=== PATIENT | male | born 1965 | race Caucasian/White ===

== ENCOUNTER 2023-09-07 20:59 | Emergency (ER) | payer BC, OTHER ==
[~2023-09-07] VITALS: Ht 172.7 cm; Wt 74.8 kg
[2023-09-07 23:20] VITALS: BP 134/70; TEMP 98.3; O2SAT 99
== END 2023-09-08 00:11 | disposition home or self-care (01) ==
LOC: ER 21:04
DX: S61.011A Laceration without foreign body of right thumb without damage to nail, initial encounter (principal); Z60.2 Problems related to living alone; W45.8XXA Other foreign body or object entering through skin, initial encounter; Y93.89 Activity, other specified; Y92.89 Other specified places as the place of occurrence of the external cause; Y99.8 Other external cause status